=== PATIENT | male | born 1970 ===

== ENCOUNTER → 2023-07-20 06:37 | Outpatient (CLI) | payer OTHER ==
[~2023-07-20 06:37] MED LIST: CLONAZEPAM0.5 MG PO; LAMICTAL100 M1 PO; PRISTIQ ER50 MG PO; RESTORIL30 M1 PO; RISPERDAL0.5 MG PO
== END | disposition home or self-care (01) ==
LOC: LAB 06:37
PROVIDERS: ATTEND Orthopaedic Surgery
DX: D64.89 Other specified anemias (principal); E88.89 Other specified metabolic disorders; D68.8 Other specified coagulation defects; N39.0 Urinary tract infection, site not specified; A49.02 Methicillin resistant Staphylococcus aureus infection, unspecified site; E11.9 Type 2 diabetes mellitus without complications; Z76.89 Persons encountering health services in other specified circumstances; I49.9 Cardiac arrhythmia, unspecified; I10 Essential (primary) hypertension

== ENCOUNTER 2023-07-27 05:09 | Day surgery (SDC) | payer OTHER | END 2023-07-27 14:55 | disposition home or self-care (01) | LOC: CIR.AMB 05:09 | PROVIDERS: ATTEND Orthopaedic Surgery | DX: M76.72 Peroneal tendinitis, left leg (principal); S93.05XA Dislocation of left ankle joint, initial encounter; I10 Essential (primary) hypertension; Z20.822 Contact with and (suspected) exposure to COVID-19; F41.9 Anxiety disorder, unspecified ==